=== PATIENT | female | born 1955 | race Caucasian/White ===

== ENCOUNTER 2020-06-28 17:45 | Inpatient (IN) | payer BC, MEDICARE ==
[2020-06-28] MEDS ORDERED: hydrOXYzine HCl 25 MG Tab PO ONE (18:03)
--- NOTE | 2020-06-28 18:11 | EDM.PDOC ---
ED HPI GENERAL MEDICAL PROBLEM - General Chief Complaint: General Stated Complaint: ER Time Seen by Provider: 06/28/20 17:53 Source of Information: Reports: Patient History Limitations: Reports: No Limitations - History of Present Illness INITIAL COMMENTS - FREE TEXT/NARRATIVE: Patient comes into the emergency department with complaints of elevated blood pressure. Patient states that she does have a history of hypertension and is on medications to control her high blood pressure. Patient states that she was recently fired from her job within the last week and is noticed that she has a lot of situational stress. 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 She is excessively worry, poor concentration, irritability, restlessness. Denies any suicidal or homicidal feelings she also states that she has had a decrease in sleep related to her mind racing. Patient states that she has some muscle cramping and tremors as well as feeling weak and tired. She feels rundown but is unable to sleep. Patient is concerned that her electrolytes could be off for she has had this in the past her blood pressure is elevated. Patient denies any active COVID symptoms. She states that she has been exposed in the recent past but has not had any active symptoms. She is been relatively healthy and has no other major concerns or complaints Onset: Gradual Location: Reports: Generalized Quality: Reports: Ache Severity: Mild Improves with: Reports: None Worsens with: Reports: None Associated Symptoms: Reports: No Other Symptoms - Related Data Allergies Allergy/AdvReac Type Severity Reaction Status Date / Time codeine Allergy Rash Verified 06/28/20 19:13 latex Allergy Rash Verified 06/28/20 19:23 morphine Allergy Rash Verified 06/28/20 19:13 Home Meds: Home Meds Metoprolol Succinate 25 mg PO DAILY 06/28/20 [History] lisinopriL [Lisinopril] 10 mg PO DAILY 06/28/20 [History] ED ROS GENERAL - Review of Systems Review Of Systems: See Below Constitutional: Reports: No Symptoms HEENT: Reports: No Symptoms Respiratory: Reports: No Symptoms Cardiovascular: Reports: No Symptoms Endocrine: Reports: No Symptoms GI/Abdominal: Reports: No Symptoms : Reports: No Symptoms Musculoskeletal: Reports: No Symptoms Skin: Reports: No Symptoms Neurological: Reports: No Symptoms Psychiatric: Reports: No Symptoms Hematologic/Lymphatic: Reports: No Symptoms Immunologic: Reports: No Symptoms ED EXAM, GENERAL - Physical Exam Exam: See Below Exam Limited By: No Limitations General Appearance: Alert, WD/WN, No Apparent Distress Head: Atraumatic, Normocephalic Neck: Normal Inspection, Supple, Non-Tender, Full Range of Motion Respiratory/Chest: No Respiratory Distress, Lungs Clear, Normal Breath Sounds, No Accessory Muscle Use, Chest Non-Tender Cardiovascular: Normal Peripheral Pulses, Regular Rate, Rhythm, No Rub Back Exam: Normal Inspection, Full Range of Motion Extremities: Normal Inspection, Normal Range of Motion, Non-Tender, No Pedal Ed dami, Normal Capillary Refill Neurological: Alert, Oriented, Normal Gait, Other (tremors ) Psychiatric: Normal Affect, Anxious Skin Exam: Warm, Dry, Intact Course - Vital Signs Last Recorded V/S: Last Vital Signs Temp 37.2 C 06/28/20 17:50 Pulse 72 06/28/20 22:15 Resp 16 06/28/20 17:50 BP 133/77 06/28/20 22:15 Pulse Ox 98 06/28/20 17:50 - Orders/Labs/Meds Orders: Active Orders 24 hr Category Date Time Status Admission Status [Patient Status] [ADT] Routine ADT 06/28/20 20:56 Active EKG Documentation Completion [RC] STAT Care 06/28/20 18:56 Active Sodium Chloride 0.9% [Saline Flush] Med 06/28/20 18:57 Active 10 ml FLUSH ASDIRECTED PRN Sodium Chloride 3% 500 ml Med 06/28/20 19:00 Active IV ASDIRECTED Peripheral IV Insertion Adult [OM.PC] Stat Oth 06/28/20 18:57 Ordered Medication Orders Alprazolam (Xanax) 0.25 mg PO Q4H PRN PRN Reason: Anxiety Last Admin: 06/28/20 22:08 Dose: 0.25 mg Documented by: SHANNAN Sodium Chloride (Sodium Chloride 3%) 500 mls @ 50 mls/hr IV ASDIRECTED NATALY Last Admin: 06/28/20 19:15 Dose: 500 mls/hr Documented by: CHANNING Lorazepam (Ativan) 0.25 mg IVPUSH Q4H PRN PRN Reason: Anxiety Metoprolol Succinate (Toprol Xl) 25 mg PO DAILY NATALY Last Admin: 06/28/20 22:15 Dose: Not Given Documented by: SHANNAN Nicotine (Habitrol) 7 mg TRDERM DAILY NATALY Last Admin: 06/28/20 22:07 Dose: 7 mg Documented by: SHANNAN Ondansetron HCl (Zofran) 4 mg IV Q4H PRN PRN Reason: Nausea/Vomiting Sodium Chloride (Saline Flush) 10 ml FLUSH ASDIRECTED PRN PRN Reason: Keep Vein Open Labs: Laboratory Tests 06/28/20 06/28/20 06/28/20 Range/Units 18:15 18:15 19:38 WBC 11.8 H (4.0-10.0) x10^3/uL RBC 4.58 (4.00-5.50) x10^6/uL Hgb 13.5 (12.0-16.0) g/dL Hct 36.3 (33.0-47.0) % MCV 79.3 (78.0-93.0) fL MCH 29.5 (26.0-32.0) pg MCHC 37.2 H (32.0-36.0) g/dL RDW Coeff of Nivia 12.0 (10.0-15.0) % Plt Count 286 (130-400) x10^3/uL Neut % (Auto) 74.6 (50.0-80.0) % Lymph % (Auto) 18.0 L (25.0-50.0) % Clare % (Auto) 7.0 (2.0-11.0) % Eos % (Auto) 0.3 (0.0-4.0) % Baso % (Auto) 0.1 L (0.2-1.2) % Sodium 109 L* (136-145) mmol/L Potassium 4.1 (3.5-5.1) mmol/L Chloride 74 L (98-107) mmol/L Carbon Dioxide 25 (21-32) mmol/L Anion Gap 14.1 (10-20) mmol/L BUN 11 (7-18) mg/dL Creatinine 0.8 (0.55-1.02) mg/dL Est Cr Clr Drug Dosing TNP Estimated GFR (MDRD) > 60 Glucose 105 (74-106) mg/dL Calcium 9.1 (8.5-10.1) mg/dL Corrected Calcium 8.54 (8.5-10.1) mg/dL Total Bilirubin 1.0 (0.2-1.0) mg/dL AST 38 H (15-37) U/L ALT 13 L (14-59) U/L Alkaline Phosphatase 79 (46-116) U/L Total Protein 8.0 (6.4-8.2) g/dL Albumin 4.7 (3.4-5.0) g/dL Globulin 3.3 Albumin/Globulin Ratio 1.42 Urine Color (YELLOW) Urine Appearance (CLEAR) Urine pH (5.0-8.0) Ur Specific [place] Urine Protein (NEGATIVE) mg/dL Urine Glucose (UA) (NEGATIVE) mg/dL Urine Ketones (NEGATIVE) mg/dL Urine Occult Blood (NEGATIVE) Urine Nitrite (NEGATIVE) Urine Bilirubin (NEGATIVE) Urine Urobilinogen (0.2) EU/dL Ur Leukocyte Esterase (NEGATIVE) Urine RBC (NOT SEEN) /HPF Urine WBC (NOT SEEN) /HPF Ur Squamous Epith Cells (NEGATIVE) /HPF Urine Bacteria (NEGATIVE) /HPF Urine Mucus (NEGATIVE) /LPF Urine Opiates Screen Negative (NEGATIVE) Ur Buprenorphine Scrn Negative (NEGATIVE) Ur Oxycodone Screen Negative (NEGATIVE) Ur EDDP (Meth Metab) Negative (NEGATIVE) Urine Methadone Screen Negative (NEGATIVE) Ur Barbituates Screen Negative (NEGATIVE) Ur Tricyclics Screen Negative (NEGATIVE) Ur Phencyclidine Scrn Negative (NEGATIVE) Ur Amphetamines Screen Negative (NEGATIVE) U Methamphetamines Scrn Negative (NEGATIVE) Urine MDMA Screen Negative (NEGATIVE) U Benzodiazepines Scrn Negative (NEGATIVE) Urine Cocaine Screen Negative (NEGATIVE) U Marijuana (THC) Screen Negative (NEGATIVE) 06/28/20 06/28/20 Range/Units 19:38 19:55 WBC (4.0-10.0) x10^3/uL RBC (4.00-5.50) x10^6/uL Hgb (12.0-16.0) g/dL Hct (33.0-47.0) % MCV (78.0-93.0) fL MCH (26.0-32.0) pg MCHC (32.0-36.0) g/dL RDW Coeff of Nivia (10.0-15.0) % Plt Count (130-400) x10^3/uL Neut % (Auto) (50.0-80.0) % Lymph % (Auto) (25.0-50.0) % Clare % (Auto) (2.0-11.0) % Eos % (Auto) (0.0-4.0) % Baso % (Auto) (0.2-1.2) % Sodium 110 L* (136-145) mmol/L Potassium (3.5-5.1) mmol/L Chloride (98-107) mmol/L Carbon Dioxide (21-32) mmol/L Anion Gap (10-20) mmol/L BUN (7-18) mg/dL Creatinine (0.55-1.02) mg/dL Est Cr Clr Drug Dosing Estimated GFR (MDRD) Glucose (74-106) mg/dL Calcium (8.5-10.1) mg/dL Corrected Calcium (8.5-10.1) mg/dL Total Bilirubin (0.2-1.0) mg/dL AST (15-37) U/L ALT (14-59) U/L Alkaline Phosphatase (46-116) U/L Total Protein (6.4-8.2) g/dL Albumin (3.4-5.0) g/dL Globulin Albumin/Globulin Ratio Urine Color Light yellow (YELLOW) Urine Appearance Clear (CLEAR) Urine pH 7.0 (5.0-8.0) Ur Specific [place] 1.015 Urine Protein Negative (NEGATIVE) mg/dL Urine Glucose (UA) Negative (NEGATIVE) mg/dL Urine Ketones Negative (NEGATIVE) mg/dL Urine Occult Blood Trace-intact H (NEGATIVE) Urine Nitrite Negative (NEGATIVE) Urine Bilirubin Negative (NEGATIVE) Urine Urobilinogen 0.2 (0.2) EU/dL Ur Leukocyte Esterase Negative (NEGATIVE) Urine RBC 5-10 H (NOT SEEN) /HPF Urine WBC Not seen (NOT SEEN) /HPF Ur Squamous Epith Cells Rare (NEGATIVE) /HPF Urine Bacteria Not seen (NEGATIVE) /HPF Urine Mucus Rare H (NEGATIVE) /LPF Urine Opiates Screen (NEGATIVE) Ur Buprenorphine Scrn (NEGATIVE) Ur Oxycodone Screen (NEGATIVE) Ur EDDP (Meth Metab) (NEGATIVE) Urine Methadone Screen (NEGATIVE) Ur Barbituates Screen (NEGATIVE) Ur Tricyclics Screen (NEGATIVE) Ur Phencyclidine Scrn (NEGATIVE) Ur Amphetamines Screen (NEGATIVE) U Methamphetamines Scrn (NEGATIVE) Urine MDMA Screen (NEGATIVE) U Benzodiazepines Scrn (NEGATIVE) Urine Cocaine Screen (NEGATIVE) U Marijuana (THC) Screen (NEGATIVE) Meds: Medications Generic Name Dose Route Start Last Admin Trade Name Freq PRN Reason Stop Dose Admin Alprazolam 0.25 mg 06/28/20 21:09 06/28/20 22:08 Xanax PO 0.25 mg Q4H PRN Administration Anxiety Sodium Chloride 500 mls @ 50 mls/hr 06/28/20 19:00 06/28/20 19:15 Sodium Chloride 3% IV 500 mls/hr ASDIRECTED NATALY Administration Lorazepam 0.25 mg 06/28/20 21:09 Ativan IVPUSH Q4H PRN Anxiety Metoprolol Succinate 25 mg 06/28/20 21:15 06/28/20 22:15 Toprol Xl PO Not Given DAILY NATALY Nicotine 7 mg 06/28/20 21:30 06/28/20 22:07 Habitrol TRDERM 7 mg DAILY NATALY Administration Ondansetron HCl 4 mg 06/28/20 21:12 Zofran IV Q4H PRN Nausea/Vomiting Sodium Chloride 10 ml 06/28/20 18:57 Saline Flush FLUSH ASDIRECTED PRN Keep Vein Open Discontinued Medications Generic Name Dose Route Start Last Admin Trade Name Robbinq PRN Reason Stop Dose Admin Hydroxyzine HCl 25 mg 06/28/20 18:03 06/28/20 18:15 Atarax PO 06/28/20 18:04 25 mg ONETIME ONE Administration Ondansetron HCl 8 mg/ Sodium 104 mls @ 400 mls/hr 06/28/20 18:58 Chloride IV 06/28/20 19:13 ONETIME ONE Departure - Departure Time of Disposition: 21:50 Disposition: Home, Self-Care 01 Condition: Good Clinical Impression: Hyponatremia - Discharge Information *PRESCRIPTION DRUG MONITORING PROGRAM REVIEWED*: Not Applicable *COPY OF PRESCRIPTION DRUG MONITORING REPORT IN PATIENT DAVID: Not Applicable Sepsis Event Note (ED) - Focused Exam Vital Signs: Vital Signs Temp Pulse Resp BP Pulse Ox 06/28/20 17:50 37.2 C 71 16 179/87 H 98 - My Orders Last 24 Hours: My Active Orders 06/28/20 18:56 EKG Documentation Completion [RC] STAT 06/28/20 18:57 Sodium Chloride 0.9% [Saline Flush] 10 ml FLUSH ASDIRECTED PRN Peripheral IV Insertion Adult [OM.PC] Stat 06/28/20 19:00 Sodium Chloride 3% 500 ml IV ASDIRECTED 06/28/20 20:56 Admission Status [Patient Status] [ADT] Routine - Assessment/Plan Last 24 Hours: My Active Orders 06/28/20 18:56 EKG Documentation Completion [RC] STAT 06/28/20 18:57 Sodium Chloride 0.9% [Saline Flush] 10 ml FLUSH ASDIRECTED PRN Peripheral IV Insertion Adult [OM.PC] Stat 06/28/20 19:00 Sodium Chloride 3% 500 ml IV ASDIRECTED 06/28/20 20:56 Admission Status [Patient Status] [ADT] Routine Assessment:: 1. anxiety 2. Hyponatremia 3. Tremors Plan: 1. Labs completed in the ER. Results reviewed with the patient 2. Hydroxyzine 25mg PO given in ER for increased anxiety 3. IV initiated in the emergency department 4. IV fluids provided- 3% bolus 100ml- instructions verbalized to nursing with read back 5. UA toxic completed 6. Repeat labs 20 mins after initial bolus 7. Zofran given in the ER to help with nausea 8. Consultation completed with-Dr. Walker who will admit the patient acute care for further medical management 9. EKG completed in ER 10. Patient and nursing staff was updated regarding the plan of care 11. Patient and family are agreeable to the above plan of care 12. All questions and concerns were addressed with the patient and family prior to discharge
[2020-06-28 18:42] LABS: CHLORIDE,CL 74 mmol/L (98-107)
[2020-06-28 18:43] LABS: ANION GAP 14.1 mmol/L (10-20); SODIUM,NA 109 mmol/L (136-145)
[2020-06-28] MEDS ORDERED: Ondansetron 8 MG in Sodium Chloride 0.9% 100 ML IV ONE (18:58)
[2020-06-28] MEDS: Sodium Chloride 3% 500 ML IV SCH (19:15)
[2020-06-28 19:58] LABS: BUPRENORPHINE,URINE NEGATIVE (NEGATIVE); MARIJUANA,URINE NEGATIVE (NEGATIVE); METHYLENEDIOXYMETHAMP,UR NEGATIVE (NEGATIVE); PHENCYCLIDINE,URINE NEGATIVE (NEGATIVE)
[2020-06-28] MEDS ORDERED: LORazepam 2 MG/ML SDV IVPUSH PRN (21:09)
[2020-06-28] MEDS ORDERED: Ondansetron 4 MG/2 ML SDV IV PRN (21:12)
[2020-06-28] MEDS: Nicotine 7 MG/24 Hr Patch TRDERM SCH (22:07)
[2020-06-28] MEDS: ALPRAZolam 0.25 MG Tab PO PRN (22:08)
[2020-06-28] MEDS: Metoprolol Succinate 25 MG Tab.ER PO SCH (22:15)
[2020-06-29] MEDS: Sodium Chloride 3% 500 ML IV SCH (00:31)
[2020-06-29] MEDS ORDERED: Desmopressin 0.2 MG Tab PO ONE (04:15)
--- NOTE | 2020-06-29 04:37 | HP ---
HISTORY OF PRESENT ILLNESS: A 64-year-old seen today due to not feeling well. The patient normally takes blood pressure medications. This morning, she reports her blood pressure was low, like 50 systolic. She admits to not eating or drinking well over the past couple of weeks and having a lot of work stress. She then doubled her lisinopril. It was noted that she is actually on lisinopril/hydrochlorothiazide 20/12.5 mg daily, which she has taken [employer] intermediary. She has had some borderline sodium around 135, last checked a few months ago. Sodium in the ER was 109. She was very shaky. She was nauseated, but has not vomited. She has had restlessness and poor concentration. She normally works nights, but was fired from her job recently due to an interaction with a resident at the formerly [facility] and she is quite worried because she was reported to the board of nursing. The patient has had difficulty sleeping. She takes no medications for moods. She uses no alcohol, but does smoke. She was down to half pack per day, but recently increased it. She denied any cough, fever, chills. No bowel or bladder issues. No diarrhea. She did quit drinking alcohol like 10 years ago. Someone at work who she last saw about 8 days ago was diagnosed with COVID. The patient denied any symptoms, but then did cough a couple of times during our interview. Admitted to drinking a lot of water today and then her blood pressure became high. ALLERGIES: The patient's allergies include Augmentin, stomach pain; codeine, itching; Lipitor, statin intolerance; and morphine, itching. MEDICATION LIST: Reviewed. She is on Toprol 25 mg daily, lisinopril 20/12.5, 1/2 pill daily, fish oil, vitamin, and lysine tabs also listed. PAST MEDICAL HISTORY: Includes the essential hypertension, hyperlipidemia, tobacco use with cigarettes, hearing loss, and remote history of alcohol overuse. SURGICAL HISTORY: She has had a total hip on the left, tonsillectomy, C- section, and lap cholecystectomy. FAMILY HISTORY: Both parents are . Mother had a heart defect, but of CHF at 91. Father had hypertension. Brother has hypertension. SOCIAL HISTORY: The patient is long time ago. Used to work at the [employer] and more recently the [employer]. She has 2 daughters, 1 of whom is present during her interview. No alcohol for at least 10 years, but smokes at least a half pack per day. REVIEW OF SYSTEMS: General: The patient has not had any fever or chills. HEENT: No trouble swallowing. Cardiac: No chest pain. Respiratory: No cough. No shortness of breath reported. She does smoke. Abdomen: As stated in HPI otherwise. Psych: As stated in HPI, but no thoughts of harming herself. Otherwise, all systems reviewed and found to be negative unless otherwise stated. Neurologic: The patient has felt a mild headaches. PHYSICAL EXAMINATION: Vital Signs: Her weight was 61 kg. Her last clinic visit was 64.5 kg, 4 months ago, so she is down at least 6 pounds. Her temp is 99, pulse 71, blood pressure 179/87, respiratory rate 16, O2 of 98% on room air. General: She is in no acute distress. She does have a fine tremor to her arms. She does appear mildly anxious, but her speech is clear and she is answering questions appropriately. Heart: Regular rate and rhythm. S1, S2 without murmur. Lungs: Lung sounds are clear to auscultation bilaterally without crackles or wheezes. Abdomen: Has positive bowel sounds. Soft, nontender. Extremities: Warm and dry. No edema. Mental Status: Alert and oriented x3. LABORATORY WORK: Did show her sodium up to 110 after she was given a rapid bolus of 100 mL of 3% saline. Her potassium 4.1, chloride 74, bicarb 25, BUN 11, creatinine 0.8, glucose 105, calcium 9.1, bilirubin 1, AST 38, ALT 13, albumin 4.7. Urine drug screen was completely negative. White count 11.8, hemoglobin 13.5, and platelets 286. ASSESSMENT: 1. Severe Hyponatremia with at least moderate symptoms. Sodium 109. Discussed with the patient the plan that we will infuse 3% saline at 50 mL/hr and get a repeat sodium check within the next hour here, so within the 2-hour window from her last check. If she is up to 113, we will turn off the infusion. If she is not up to 113, we will check in another couple of hours. Notified her that we want to raise about 4 to 6 points and then let her body do the rest and come up on its own. There is no yeager to get her back to a normal level. She is understanding of that. 2. Extreme stress and some work anxiety. The patient agreeable to use some Ativan or Xanax. Did discuss with her this would also help to prevent seizures given the seizure threshold being decreased due to low sodium. 3. Tremors. Symptoms from low sodium. 4. Essential hypertension with elevated blood pressure. Advised that due to stress, it is probably elevated and the Xanax may help this even more than blood pressure pills. I will order another dose of her Toprol tonight. Continue also lisinopril but hold HCTZ 5. Hyperlipidemia. 6. Remote history of alcohol use. 7. Smoking. PLAN: At this point, the patient is admitted for acute cares with 3% saline at 50 mL/hr and repeat showed sodium checks until the levels are up to 113. We will hold off on any salt tabs or Lasix. The patient is not edematous. We will let her eat a liberal salt diet. We will get her on a nicotine patch. We will have Zofran available for nausea. We will monitor her with telemetry. We will also get a urine test just to rule out any infections as well as a urine and serum osmolality. However, the cause of her hyponatremia is very likely her poor oral intake in the setting of HCTZ than significant water intake today. She has felt poorly over the last 2 weeks, so I do not think this is an acute hyponatremia just over days and she agrees but likely subacute. The patient is a nurse. 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 I expect her to be up and ambulatory and potentially even going home as soon as tomorrow. However, if she does stay, we will institute Lovenox 40 mg daily. MKA: 06/28/2020 21:25:22 MODL: 06/29/2020 04:29:17 /[id number] JESSE
[2020-06-29 08:35] LABS: CHLORIDE,CL 81 mmol/L (98-107)
[2020-06-29 08:37] LABS: ANION GAP 13.1 mmol/L (10-20); SODIUM,NA 116 mmol/L (136-145)
[2020-06-29] MEDS: Metoprolol Succinate 25 MG Tab.ER PO SCH (09:02)
[2020-06-29] MEDS: Nicotine 7 MG/24 Hr Patch TRDERM SCH (09:03)
[2020-06-29] MEDS ORDERED: Potassium Chloride Riders 20 MEQ in Premix Bag 1 BAG IV ONE (09:03)
[2020-06-29] MEDS: Lisinopril 2.5 MG Tab PO SCH (09:18)
[2020-06-29] MEDS: Potassium Chloride 20 MEQ Tab.ER PO SCH ×2 (09:19→20:32)
[2020-06-29] MEDS: Sodium Chloride 0.9% 10 ML Syringe FLUSH PRN ×2 (09:19→14:50)
[2020-06-29] MEDS ORDERED: Potassium Chloride 10 MEQ Tab.ER PO ONE (10:10)
--- NOTE | 2020-06-29 10:44 | PN ---
Progress Note for [facility] CALL Date: 06/29/2020 Room #: VM.206 SUBJECTIVE: This is hospital day #2 on a 64-year-old admitted with severe hyponatremia with symptoms of irritability, nausea, and shakiness. Her symptoms improved after 100 mL bolus of 3% saline. She was then turned down to 50 mL/h and her sodium improved from 109 to 111 by 9:30 p.m. Her infusion was then turned down to 25 mL/h of 3% saline and she went up to 117 at 1 a.m. Because this was felt to be too rapid of a correction, we did give her a dose of oral desmopressin 0.2 one time as IV was not available. She is neurologically doing fine. She had no nausea and was feeling better until she got IV potassium this morning which burned significantly and made her feel ill. This was then discontinued. She was able to tolerate the oral 20 mEq potassium dose, but did not feel like eating much for breakfast. The patient has not had any recent weight loss, but she has had significant stress. She got fired from work on 06/26/2020 due to being verbally abusive to a resident. She is quite worried about what might happen with the Board of Nursing. The patient did get 1 dose of Xanax on admission. She otherwise has well-controlled blood pressures. She took her metoprolol last evening and her lisinopril will be given this morning. Hydrochlorothiazide is on hold. OBJECTIVE: Vital Signs: Her temperature 97.6, pulse 66, blood pressure 118/69, respiratory rate 18, O2 of 97% on room air. General: She is in no acute distress. Heart: Regular rate and rhythm. S1, S2 without murmur. Lungs: Lung sounds are clear to auscultation bilaterally without crackles or wheezes. Abdomen: Positive bowel sounds. Soft, nontender. Extremities: Warm and dry. No edema. Mental Status: Alert and orientated x3. LABORATORY DATA: Lab work does show her to have a white count normal at 9.6, hemoglobin 12.8, platelets 290. Sodium 116, it was 117 during the night. Potassium 3.1, chloride 81, bicarb 21, BUN 11, creatinine 0.8, glucose 113, calcium 8.6. COVID testing did come back negative. ASSESSMENT: 1. Severe hyponatremia with moderate symptoms. Symptoms have resolved. The patient is feeling better. Sodium did correct now 7 points in the first 24 hours. We will monitor again at 1 p.m. today and re-dose DDAVP. If she goes up any further, we would like to correct her no more than 10 points in this first 24-hour period. I do believe her severe low sodium was acute in the last couple of weeks, but probably worsening in the last 2 days. 2. Extreme stress and work anxiety. The patient and I discussed her medical condition. I did tell her I would write her a letter regarding her medical condition, how it probably did increase her irritability. 3. Tremors from low sodium, resolved. 4. Essential hypertension, well controlled. 5. Hypokalemia. We will replace orally and repeat a potassium at 1 p.m. with a magnesium level. 6. Hyperlipidemia. 7. Remote history of alcohol use. Her urine drug screen was normal. 8. Smoking. She is on a nicotine patch. PLAN: At this point, the patient will be started on DVT prophylaxis with Lovenox. We will repeat her lab work at 1 p.m. to include a TSH. Her 3% saline infusion is on hold and I suspect she will not need any further. We will monitor sodium closely and re-dose DDAVP if indicated. VEROA: 06/29/2020 10:19:00 MODL: 06/29/2020 10:37:26 /[id number]
[2020-06-29] MEDS: Enoxaparin 40 MG/0.4 ML Syringe SUBCUT SCH (11:01)
[2020-06-29 14:06] LABS: CHLORIDE,CL 80 mmol/L (98-107)
[2020-06-29 14:08] LABS: ANION GAP 11.9 mmol/L (10-20); SODIUM,NA 112 mmol/L (136-145)
[2020-06-29] MEDS ORDERED: Sodium Chloride 3% 500 ML IV SCH (14:30)
[2020-06-29] MEDS: Magnesium Oxide 400 MG Tab PO SCH ×2 (14:54→20:32)
[2020-06-29] MEDS: ALPRAZolam 0.25 MG Tab PO PRN (20:32)
[2020-06-30] MEDS: ALPRAZolam 0.25 MG Tab PO PRN ×2 (00:04→20:03)
[2020-06-30 08:36] LABS: CHLORIDE,CL 86 mmol/L (98-107)
[2020-06-30 08:37] LABS: ANION GAP 10.2 mmol/L (10-20); SODIUM,NA 117 mmol/L (136-145)
[2020-06-30] MEDS: Lisinopril 2.5 MG Tab PO SCH (08:52)
[2020-06-30] MEDS: Nicotine 7 MG/24 Hr Patch TRDERM SCH (08:52)
[2020-06-30] MEDS: Metoprolol Succinate 25 MG Tab.ER PO SCH (08:53)
[2020-06-30] MEDS: Potassium Chloride 20 MEQ Tab.ER PO SCH (08:53)
[2020-06-30] MEDS: Magnesium Oxide 400 MG Tab PO SCH ×2 (08:53→20:03)
[2020-06-30] MEDS: Enoxaparin 40 MG/0.4 ML Syringe SUBCUT SCH (09:38)
--- NOTE | 2020-06-30 11:24 | PCM.SN.2 ---
- Free Text/Narrative Note: To whom it may concern: Leticia Coronado is a patient under my care. With her permission I am disclosing to you that she was admitted to the hospital on June 28, 2020 with severe hyponatremia. Her sodium was only 109. Her decrease in sodium likely occurred over a period of about two weeks based on her history of symptoms such as muscle cramps. She did notify me that an event took place at her work on June 26, 2020. I have explained to her that I do believe that her low sodium level did contribute to this event since low sodium levels are known to cause irritability and confusion. When she arrived in the emergency room she had moderate symptoms of hyponatremia with severe symptoms being a seizure which she luckily did not have. I did explain to her that the symptoms she described and she was attributing to stress were likely related to the low sodium level. We have made adjustments to her medications and I do not anticipate a severe low sodium level or hyponatremia to reoccur. She also had a urine drug and alcohol screen that was negative. There was no indication that any substance abuse cont ributed to this event as it was related to her blood pressure medication and changes in her diet. Sincerely, Nancy Walker, DO
--- NOTE | 2020-06-30 11:35 | PN ---
Progress Note for [facility] Date: 06/30/2020 Room #: VM.206 SUBJECTIVE: This is hospital day #3 on a 64-year-old admitted with severe hyponatremia due to hydrochlorothiazide. The patient feels much better. She is no longer having muscle cramps. Her breathing is good. She did get quite anxious about some little things last night, like not being able to find a towel. She has no history of anxiety, but has had quite an adjustment period over the last couple of weeks with work stress and then losing her job 2 days prior to admission. The patient did get a Xanax around midnight. Otherwise, she has been on magnesium supplements. She has been on her lisinopril only, but lower doses. Blood pressures are controlled. The highest was in the 130s. She is also receiving her Toprol 25 mg at bedtime. Heart rates are as low as 40s on telemetry. There has been no tachycardia. She admits that earlier this winter when she went to the clinic, she was having some fatigue. She is no longer having headaches. We did stop the 3% sodium last evening when her sodium came up to 114, it is 117 today. She is up 8 points now in the 36 hours since her admission. OBJECTIVE: Vital Signs: Her temperature is 97.7, pulse 57, blood pressure 128/78, respiratory rate 17, and O2 of 100% on room air. General: She is in no acute distress. Heart: Regular rate and rhythm. S1, S2 without murmur. Chest: Lungs sounds are clear to auscultation bilaterally without crackles or wheezes. Abdomen: Positive bowel sounds. Soft, nontender. Extremities: Warm and dry. No edema. Mental Status: Alert and orientated x3. ASSESSMENT: 1. Severe hyponatremia with moderate symptoms requiring 3% saline, now off. Sodium is responding appropriately, up to 117. We will repeat later today. The patient is considering even going home. We will give her a liberal salt diet today and discharge home tonight if sodium level continues to improve and she is feeling as well as she does right now. 2. Extreme stress and work anxiety. Discussed that she is likely having an adjustment period. I do not recommend any long-term treatments for anxiety, especially since many SSRIs can decrease sodium. I advised that likely she will need to go home with about 5 Xanax. She may also take Benadryl for anxiety. 3. Tremors due to low sodium, resolved. 4. Essential hypertension, well controlled, but with bradycardia. We will decrease Toprol to 12.5 daily and I will increase her lisinopril back to her home dose of 10 mg. She should never take hydrochlorothiazide again. 5. Hypomagnesemia, on oral replacement. 6. Hyperlipidemia. 7. Remote history of alcohol use. 8. Smoking. She is on a nicotine patch. PLAN: The patient will continue on acute cares. We will repeat her lab work at 5 p.m. She is on Lovenox for DVT prophylaxis. She very likely will not require any further 3% saline. Anticipate that she will be discharged as soon as the next 12 to 24 hours. JAMISON: 06/30/2020 11:10:35 MODL: 06/30/2020 11:27:44 /[id number]
--- NOTE | 2020-06-30 11:51 | PCM.SN.2 ---
- Free Text/Narrative Note: tele was concerning for peaked T waves given Low K yesterday and normal today but got a dose of potassium this AM. EKG requested and no peaking was noted. A bmp will also be done now to further assess K level and sodium.
[2020-06-30 12:16] LABS: CHLORIDE,CL 87 mmol/L (98-107)
[2020-06-30 12:17] LABS: ANION GAP 11.7 mmol/L (10-20); SODIUM,NA 118 mmol/L (136-145)
[2020-07-01 07:11] LABS: CHLORIDE,CL 90 mmol/L (98-107)
[2020-07-01 07:13] LABS: ANION GAP 10.4 mmol/L (10-20); SODIUM,NA 124 mmol/L (136-145)
[2020-07-01] MEDS ORDERED: Lisinopril 10 MG Tab PO SCH (08:00)
[2020-07-01] MEDS: Magnesium Oxide 400 MG Tab PO SCH (08:09)
[2020-07-01] MEDS: Nicotine 7 MG/24 Hr Patch TRDERM SCH (08:11)
[2020-07-01] MEDS ORDERED: Bisacodyl 10 MG Supp RECTAL PRN (08:47)
[2020-07-01] MEDS: Enoxaparin 40 MG/0.4 ML Syringe SUBCUT SCH (10:18)
[2020-07-01] MEDS ORDERED: Metoprolol Succinate 25 MG Tab.ER PO SCH (20:00)
--- NOTE | 2020-07-01 20:56 | DISCH ---
PRIMARY DISCHARGE DIAGNOSES: 1. Severe hyponatremia with moderate symptoms, sodium of 109. 2. Muscle cramps, anxiety, nausea all related to low sodium. 3. Essential hypertension with elevated blood pressure on admission, but controlled by discharge. Hydrochlorothiazide stopped due to hyponatremia. 4. Anxiety and work stress. 5. Hypomagnesemia, replaced orally. 6. Hypokalemia, replaced orally. No further potassium needed on discharge. 7. Tremors due to low sodium, resolved. 8. Hyperlipidemia. 9. Smoking. 10.Remote history of alcohol abuse. REASON FOR ADMISSION: On the date of admission, this 64-year-old female who was having muscle cramps and feeling poorly for about 2 weeks, came into the ER. She was found to have a sodium of 109 when previously it had been normal several months ago in the clinic. The patient had not been eating or drinking well and admitted to drinking quite a bit of water on the day of admission due to a low blood pressure that morning. She was given 100 mL of 3% saline and her symptoms improved. Decision was made to admit her and start her on a 3% saline drip at 50 mL/hr. Eventually, it was turned down to 25 mL an hour. However, her sodium did start to rapidly correct. She was up to 117 within the first 12 hours. She received a dose of DDAVP orally, which did help her sodium levels to come back down and stabilize. Then, eventually, it went down to 111, and the drip was restarted, and once her sodium started increasing again, it was turned off and she had it off for greater than 36 hours, and her sodium at the time of discharge this morning was up to 124. The patient otherwise was feeling well. She had no headache. She had no cough, no shortness of breath. Her discharging magnesium was 2.1. Discharging potassium was 4.4. Her white count was normal. She had no urine infection during her stay. Her COVID was negative. Thyroid was normal during her stay. Her urine showed just 5-10 rbc's, no wbc's. Her urine drug screen was negative. The patient was also noted to have low heart rates on her heart monitor down to 47. She had been on metoprolol for hypertension and had given some history of palpitations. The dose was decreased to 12.5 daily. Otherwise, her lisinopril was restarted without the hydrochlorothiazide. She normally took 10 mg at home, but blood pressure this morning was just 99/61, so decision was made to send her home on 5 mg daily. PHYSICAL EXAMINATION: Discharging Vitals: Temperature 97.9, pulse 54, blood pressure was then up to 137/74 at 8 a.m., respiratory rate 14, and O2 of 97% on room air. General: She is in no acute distress. Heart: Regular rate and rhythm. S1, S2 without murmur. Lungs: Lung sounds are clear to auscultation bilaterally without crackles or wheezes. Abdomen: Has positive bowel sounds. Soft and nontender. Extremities: Warm and dry. No edema. Mental Status: Alert and oriented x3. DISCHARGE PLANS AND INSTRUCTIONS: The patient will recheck in the clinic on 07/09/2020 at 11 a.m. with lab work for a sodium check that morning. She will stop lisinopril/hydrochlorothiazide and start lisinopril 5 mg daily. She will decrease her metoprolol or Toprol to 12.5 daily. She will take a magnesium supplement like mag oxide 400 daily that should also help with constipation. The patient had also not had a bowel movement. She may use a Dulcolax suppository at home as she was unsure that she wanted one here. The patient met with a long term care social worker as well. She is considering whether she wants to pursue counseling related to her recent work stress. Greater than 30 minutes spent on the discharge process. MKA: 07/01/2020 17:28:16 MODL: 07/01/2020 20:51:21 /[id number] JESSE
== END 2020-07-01 13:35 | disposition home or self-care (01) | DRG 426 ==
LOC: VM.ED 17:45 → VM.MS 21:00
PROVIDERS: ADMIT Internal Medicine; ATTEND Internal Medicine
DX: E87.1 Hypo-osmolality and hyponatremia (principal); I10 Essential (primary) hypertension; F41.9 Anxiety disorder, unspecified; Z56.3 Stressful work schedule; E83.42 Hypomagnesemia; E87.6 Hypokalemia; E78.5 Hyperlipidemia, unspecified; F17.210 Nicotine dependence, cigarettes, uncomplicated; F10.11 Alcohol abuse, in remission; Z20.828 Contact with and (suspected) exposure to other viral communicable diseases; K59.00 Constipation, unspecified; H91.90 Unspecified hearing loss, unspecified ear; Z96.642 Presence of left artificial hip joint; Z90.89 Acquired absence of other organs; Z88.1 Allergy status to other antibiotic agents; Z88.5 Allergy status to narcotic agent; Z88.8 Allergy status to other drugs, medicaments and biological substances; Z79.899 Other long term (current) drug therapy; Z90.49 Acquired absence of other specified parts of digestive tract; Z91.041 Radiographic dye allergy status
CPT/HCPCS: 36415; 80048; 80053; 80305-QW; 81001; 83735; 83930; 83935; 84295; 84443; 85025; 93005; 96365; 99284-GF; 99285-25; A9270-GY; J1650; J2405; J3480; J7040; J7050; U0002

== ENCOUNTER 2022-11-15 15:56 | Emergency (ER) | payer OTHER ==
[2022-11-15] MEDS ORDERED: Acetaminophen/HYDROcodone 325-10 MG Tab PO ONE (16:20)
[2022-11-15] MEDS ORDERED: Take Home: Acetaminophen/HYDROcodone 325-5 MG, 5 Tab Pack PO ONE (17:18)
== END 2022-11-15 17:27 | disposition home or self-care (01) ==
LOC: VM.ED 15:56
DX: S52.502A Unspecified fracture of the lower end of left radius, initial encounter for closed fracture (principal); S52.602A Unspecified fracture of lower end of left ulna, initial encounter for closed fracture; I10 Essential (primary) hypertension; Z79.899 Other long term (current) drug therapy; Z88.5 Allergy status to narcotic agent; Z91.040 Latex allergy status; W00.0XXA Fall on same level due to ice and snow, initial encounter
CPT/HCPCS: 73110-LT; 99283; A9270-GY

== ENCOUNTER 2024-05-07 20:47 | Observation (INO) | payer MEDICARE, OTHER ==
[2024-05-07] MEDS ORDERED: Sodium Chloride 0.9% 10 ML Syringe FLUSH PRN (21:20)
[2024-05-07 21:32] LABS: BASOPHILS PERCENT AUTO 0.2 % (0.2-1.2); EOSINOPHILS ABSOLUTE AUTO 0.1 x10^3/uL (0.0-0.5); EOSINOPHILS PERCENT AUTO 0.7 % (0.0-4.0); HEMOGLOBIN 13.4 g/dL (12.0-16.0); IMMATURE GRAN ABSOLUTE AUTO 0.03 x10^3/uL (0.00-0.07); LYMPHOCYTES PERCENT AUTO 32.8 % (25.0-50.0); MEAN CORPUSCULAR HGB CONC 35.3 g/dL (32.0-36.0); MONOCYTES PERCENT AUTO 7.7 % (2.0-11.0); NEUTROPHILS ABSOLUTE AUTO 7.2 x10^3/uL (1.8-7.7); NEUTROPHILS PERCENT AUTO 58.4 % (50.0-80.0); PLATELET COUNT,PLT 271 x10^3/uL (130-400); RED BLOOD CELL COUNT 4.47 x10^6/uL (4.00-5.50); WHITE BLOOD CELL COUNT,WBC 12.3 x10^3/uL (4.0-10.0)
[2024-05-07 21:41] LABS: PROTHROMBIN TIME 10.1 SEC (8.9-11.5); PTT,PARTIAL THROMBOPLSTIN TIME 26.7 SEC (21.9-33.8)
[2024-05-07 21:54] LABS: A/G RATIO 1.18; ALANINE AMINOTRANSFERASE,ALT 27 U/L (14-59); ALBUMIN 3.9 g/dL (3.4-5.0); ALKALINE PHOSPHATASE 83 U/L (46-116); ASPARTATE AMNIOTRANSFERASE,AST 54 U/L (15-37); BILIRUBIN TOTAL 0.4 mg/dL (0.2-1.0); BLOOD UREA NITROGEN,BUN 22 mg/dL (7-18); CALCIUM 8.8 mg/dL (8.5-10.1); CARBON DIOXIDE,CO2 21 mmol/L (21-32); CHLORIDE,CL 93 mmol/L (98-107); CREATININE 1.3 mg/dL (0.55-1.02); GLUCOSE RANDOM 103 mg/dL (70-99); MAGNESIUM 1.7 mg/dL (1.8-2.4); POTASSIUM,K 4.6 mmol/L (3.5-5.1); PRO B-TYPE NATRIUR PEPT,BNPPRO 2466 pg/mL (<=125); PROTEIN TOTAL,TP 7.2 g/dL (6.4-8.2); TSH ULTRASENSITIVE 3.186 uIU/mL (0.358-3.74)
[2024-05-07 21:57] LABS: ANION GAP 17.6 mmol/L (5-15); C-REACTIVE PROTEIN < 0.50 mg/dL (<=0.50); ESTIMATED GFR 44 mL/min (>=60)
[2024-05-07 21:58] LABS: SODIUM,NA 127 mmol/L (136-145)
[2024-05-07] MEDS: Atropine 0.1 MG/ML 10 ML Syringe IVPUSH ONE (22:01)
[2024-05-07] MEDS: Sodium Chloride 0.9% 1,000 ML IV SCH ×2 (22:20→23:28)
[2024-05-07] MEDS: Nicotine 14 MG/24 Hr Patch TRDERM SCH (23:30)
[2024-05-07] MEDS: Aspirin 81 MG Tab.Chew PO SCH (23:30)
[2024-05-08] MEDS: Nitroglycerin 0.4 MG Tab.SL SL PRN (02:37)
[2024-05-08] MEDS: Zolpidem 5 MG Tab PO PRN (03:10)
[2024-05-08 06:47] LABS: BASOPHILS PERCENT AUTO 0.3 % (0.2-1.2); EOSINOPHILS ABSOLUTE AUTO 0.1 x10^3/uL (0.0-0.5); EOSINOPHILS PERCENT AUTO 0.9 % (0.0-4.0); HEMOGLOBIN 12.8 g/dL (12.0-16.0); IMMATURE GRAN ABSOLUTE AUTO 0.01 x10^3/uL (0.00-0.07); LYMPHOCYTES ABSOLUTE AUTO 3.1 x10^3/uL (1.0-4.8); LYMPHOCYTES PERCENT AUTO 35.7 % (25.0-50.0); MEAN CORPUSCULAR HEMOGLOBIN 29.9 pg (26.0-32.0); MEAN CORPUSCULAR HGB CONC 34.6 g/dL (32.0-36.0); MEAN CORPUSCULAR VOLUME 86.4 fL (78.0-93.0); MONOCYTES ABSOLUTE AUTO 0.7 x10^3/uL (0.0-0.8); MONOCYTES PERCENT AUTO 7.9 % (2.0-11.0); NEUTROPHILS ABSOLUTE AUTO 4.7 x10^3/uL (1.8-7.7); NEUTROPHILS PERCENT AUTO 55.1 % (50.0-80.0); PLATELET COUNT,PLT 241 x10^3/uL (130-400); RED BLOOD CELL COUNT 4.28 x10^6/uL (4.00-5.50); WHITE BLOOD CELL COUNT,WBC 8.6 x10^3/uL (4.0-10.0)
[2024-05-08 07:08] LABS: CALCIUM 8.3 mg/dL (8.5-10.1); CREATININE 1.1 mg/dL (0.55-1.02); EST CRCL DRUG DOSING (CG) 44.55 mL/min; POTASSIUM,K 4.4 mmol/L (3.5-5.1)
[2024-05-08 07:19] LABS: ANION GAP 12.4 mmol/L (5-15)
[2024-05-08] MEDS: Lisinopril 10 MG Tab PO SCH (08:43)
[2024-05-08] MEDS: Magnesium Oxide 400 MG Tab PO SCH (08:43)
[2024-05-08] MEDS ORDERED: Magnesium Oxide 400 MG Tab PO SCH (21:00)
== END 2024-05-08 13:05 | disposition short-term general hospital (02) ==
LOC: VM.ED 20:47 → VM.MS 22:29
PROVIDERS: ADMIT Physician Assistant; ATTEND Physician Assistant
DX: E87.1 Hypo-osmolality and hyponatremia (principal); R00.1 Bradycardia, unspecified; I10 Essential (primary) hypertension; E78.5 Hyperlipidemia, unspecified; Z79.899 Other long term (current) drug therapy
CPT/HCPCS: 36415; 71045; 80048; 80053; 83735; 83880; 84443; 84484; 85025; 85610; 85730; 86140; 93005; 96361; 96374; 99285-25; A9270-GY; G0378; J0461; J7030

== ENCOUNTER 2025-03-31 12:38 | Emergency (ER) | payer MEDICARE ==
[2025-03-31 13:24] LABS: BASOPHILS PERCENT AUTO 0.2 % (0.2-1.2); EOSINOPHILS PERCENT AUTO 0.4 % (0.0-4.0); HEMATOCRIT 38.7 % (33.0-47.0); HEMOGLOBIN 12.8 g/dL (12.0-16.0); IMMATURE GRAN ABSOLUTE AUTO 0.02 x10^3/uL (0.00-0.07); LYMPHOCYTES PERCENT AUTO 19.2 % (25.0-50.0); MEAN CORPUSCULAR HEMOGLOBIN 28.5 pg (26.0-32.0); MEAN CORPUSCULAR HGB CONC 33.1 g/dL (32.0-36.0); MEAN CORPUSCULAR VOLUME 86.2 fL (78.0-93.0); MONOCYTES ABSOLUTE AUTO 0.7 x10^3/uL (0.0-0.8); MONOCYTES PERCENT AUTO 7.2 % (2.0-11.0); NEUTROPHILS ABSOLUTE AUTO 7.4 x10^3/uL (1.8-7.7); NEUTROPHILS PERCENT AUTO 72.8 % (50.0-80.0); PLATELET COUNT,PLT 307 x10^3/uL (130-400); RED BLOOD CELL COUNT 4.49 x10^6/uL (4.00-5.50); WHITE BLOOD CELL COUNT,WBC 10.1 x10^3/uL (4.0-10.0)
[2025-03-31 13:41] LABS: A/G RATIO 1.45; ALBUMIN 4.8 g/dL (3.4-5.0); BILIRUBIN TOTAL 0.5 mg/dL (0.2-1.0); CREATININE 1.2 mg/dL (0.55-1.02); EST CRCL DRUG DOSING (CG) 40.25 mL/min; MAGNESIUM 1.9 mg/dL (1.8-2.4); POTASSIUM,K 5.1 mmol/L (3.5-5.1); PROTEIN TOTAL,TP 8.1 g/dL (6.4-8.2)
[2025-03-31 13:49] LABS: ANION GAP 15.1 mmol/L (5-15)
== END 2025-03-31 14:11 | disposition home or self-care (01) ==
LOC: VM.ED 12:38
DX: E87.1 Hypo-osmolality and hyponatremia (principal); R53.1 Weakness; I10 Essential (primary) hypertension; Z88.5 Allergy status to narcotic agent; Z88.8 Allergy status to other drugs, medicaments and biological substances; Z91.040 Latex allergy status; Z79.899 Other long term (current) drug therapy; Z90.49 Acquired absence of other specified parts of digestive tract
CPT/HCPCS: 36415; 80053; 83735; 84484; 85025; 93005; 99284; 99285

== ENCOUNTER 2025-05-14 20:30 | Emergency (ER) | payer MEDICARE ==
[2025-05-14 21:28] LABS: BASOPHILS PERCENT AUTO 0.3 % (0.2-1.2); EOSINOPHILS ABSOLUTE AUTO 0.1 x10^3/uL (0.0-0.5); EOSINOPHILS PERCENT AUTO 0.5 % (0.0-4.0); HEMATOCRIT 34.9 % (33.0-47.0); HEMOGLOBIN 11.9 g/dL (12.0-16.0); IMMATURE GRAN ABSOLUTE AUTO 0.02 x10^3/uL (0.00-0.07); LYMPHOCYTES ABSOLUTE AUTO 2.8 x10^3/uL (1.0-4.8); LYMPHOCYTES PERCENT AUTO 28.5 % (25.0-50.0); MEAN CORPUSCULAR HEMOGLOBIN 28.7 pg (26.0-32.0); MEAN CORPUSCULAR HGB CONC 34.1 g/dL (32.0-36.0); MEAN CORPUSCULAR VOLUME 84.3 fL (78.0-93.0); MONOCYTES ABSOLUTE AUTO 0.8 x10^3/uL (0.0-0.8); NEUTROPHILS ABSOLUTE AUTO 6.1 x10^3/uL (1.8-7.7); NEUTROPHILS PERCENT AUTO 62.5 % (50.0-80.0); PLATELET COUNT,PLT 291 x10^3/uL (130-400); RED BLOOD CELL COUNT 4.14 x10^6/uL (4.00-5.50); WHITE BLOOD CELL COUNT,WBC 9.8 x10^3/uL (4.0-10.0)
[2025-05-14 21:33] LABS: INR 2.5 (0.9-1.1); PROTHROMBIN TIME 25.8 SEC (9.6-12.0)
[2025-05-14 21:41] LABS: A/G RATIO 1.34; ALBUMIN 4.7 g/dL (3.4-5.0); BILIRUBIN TOTAL 0.4 mg/dL (0.2-1.0); CALCIUM 9.3 mg/dL (8.5-10.1); CREATININE 1.1 mg/dL (0.55-1.02); EST CRCL DRUG DOSING (CG) 43.91 mL/min; POTASSIUM,K 3.8 mmol/L (3.5-5.1); PROTEIN TOTAL,TP 8.2 g/dL (6.4-8.2)
[2025-05-14 21:42] LABS: ANION GAP 17.8 mmol/L (5-15)
== END 2025-05-14 22:01 | disposition home or self-care (01) ==
LOC: VM.ED 20:30
DX: M79.89 Other specified soft tissue disorders (principal); I10 Essential (primary) hypertension; Z88.5 Allergy status to narcotic agent; Z91.040 Latex allergy status; Z79.899 Other long term (current) drug therapy; Z90.49 Acquired absence of other specified parts of digestive tract
CPT/HCPCS: 36415; 71046; 80053; 82550; 84484; 85025; 85610; 93005; 93010; 99284